=== PATIENT | male | born 2000 | race Two or more races ===

== ENCOUNTER 2022-05-24 08:00 | Outpatient (CLI) | payer OTHER | END 2022-05-24 08:05 | disposition home or self-care (01) | LOC: PPH VACUNA 08:00 | PROVIDERS: ATTEND Emergency Medicine Pediatric Emergency Medicine | DX: Z23 Encounter for immunization (principal) ==

== ENCOUNTER 2022-06-20 20:16 | Emergency (ER) | payer OTHER ==
[~2022-06-20] VITALS: Ht 177.8 cm; Wt 90.7 kg
[2022-06-20] MEDS ORDERED: AMOX-CLAV 875-1 EAC1 PO (22:50)
== END 2022-06-20 22:57 | disposition home or self-care (01) ==
LOC: ER 20:16
DX: J02.9 Acute pharyngitis, unspecified (principal); Z20.822 Contact with and (suspected) exposure to COVID-19

== ENCOUNTER → 2023-10-01 06:58 | Outpatient (CLI) | payer OTHER ==
[~2023-10-01 06:58] MED LIST: AMOX-CLAV 875-1 EAC1 PO
[2023-10-01 07:35] LABS: HEMATOCRIT 46.5 % (39.0-48.0); MEAN CELL VOLUME 86.4 fL (80.0-100.00); MEAN CORPUSCULAR HEMOGLOBIN 29.6 pg (27.00-32.0); MEAN CORPUSCULAR HGB CONC 34.3 g/dl (32.0-36.0); PLATELET COUNT 201 K/uL (150-450); RED BLOOD COUNT 5.39 M/uL (4.00-6.00); RED CELL DISTRIBUTION WIDTH 13.3 % (11.5-14.5)
[2023-10-01 08:05] LABS: ALBUMIN 3.8 gm/dL (3.4-5.0); BILIRUBIN TOTAL 0.3 mg/dL (0.3-1.2); CHOL HDL RATIO 5.7 (0-5.0); CREATININE SERUM 1.03 mg/dL (0.70-1.30); GFR 88.72; GLOBULINA 4.1 G/DL (2.4-3.5); POTASSIUM 3.89 mEq/L (3.5-5.1); T4 TOTAL 10.36 UG/DL (4.5-12.1); TOTAL PROTEIN 7.9 gm/dL (6.4-8.2); TSH 1.04 uIU/mL (0.358-3.74)
== END | disposition home or self-care (01) ==
LOC: LAB 06:58
PROVIDERS: ATTEND General Practice
DX: E78.5 Hyperlipidemia, unspecified (principal)

== ENCOUNTER 2023-11-06 14:30 | Outpatient (CLI) | payer OTHER | END 2023-11-06 14:40 | disposition home or self-care (01) | LOC: PPH VACUNA 14:30 | PROVIDERS: ATTEND Emergency Medicine Pediatric Emergency Medicine | DX: Z23 Encounter for immunization (principal) ==

== ENCOUNTER 2024-07-22 07:45 | Outpatient (CLI) | payer OTHER | END 2024-07-22 07:55 | disposition home or self-care (01) | LOC: PPH VACUNA 07:45 | PROVIDERS: ATTEND Emergency Medicine Pediatric Emergency Medicine | DX: Z23 Encounter for immunization (principal) ==

== ENCOUNTER 2025-01-19 06:24 | Outpatient (CLI) | payer OTHER ==
[2025-01-19 07:11] LABS: BASO % 0.4 % (0.1-1.2); EOS # 0.33 (0.04-0.54); EOS % 3.5 % (0.7-7.0); HEMATOCRIT 46.4 % (40.1-51.0); LYMPH # 3.68 (1.18-3.74); LYMPH % 38.9 % (19.3-53.1); MEAN CORPUSCULAR HEMOGLOBIN 28.6 pg (25.6-32.2); MONO # 0.97 (0.24-0.82); MONO % 10.2 % (4.7-12.5); NEUT # 4.39 (1.56-6.13); NEUT % 46.4 % (34.0-71.1); PLATELET COUNT 224 K/uL (163-369); RED BLOOD COUNT 5.59 M/uL (4.63-6.08); RED CELL DISTRIBUTION WIDTH 12.2 % (11.6-14.4)
[2025-01-19 08:10] LABS: CREATININE SERUM 1.03 mg/dL (0.70-1.30); GFR 87.99; POTASSIUM 4.54 mEq/L (3.5-5.1)
== END 2025-01-19 06:27 | disposition home or self-care (01) ==
LOC: LAB 06:24
PROVIDERS: ATTEND General Practice
DX: A50.9 Congenital syphilis, unspecified (principal); D64.9 Anemia, unspecified; E11.9 Type 2 diabetes mellitus without complications

== ENCOUNTER 2025-01-28 07:37 | Outpatient (CLI) | payer OTHER | END 2025-01-28 14:53 | disposition home or self-care (01) | LOC: LAB 07:37 | PROVIDERS: ATTEND General Practice | DX: B18.2 Chronic viral hepatitis C (principal); B19.20 Unspecified viral hepatitis C without hepatic coma ==

== ENCOUNTER 2025-05-29 02:42 | Emergency (ER) | payer OTHER ==
[~2025-05-29] VITALS: Ht 177.8 cm; Wt 108.9 kg
[2025-05-29] MEDS ORDERED: POTASSIUM CHLORIDE/NACL 0.9% 20 MEQ/1,000 ML PIGGYBAG IV ONE ×2 (02:49→03:00)
[2025-05-29] MEDS ORDERED: LACTOBACILLUS ACIDOPHILUS 1 CAP CAP PO STA (02:50)
[2025-05-29 03:08] LABS: BASO % 0.2 % (0.1-1.2); EOS # 0.08 (0.04-0.54); EOS % 0.7 % (0.7-7.0); LYMPH # 2.08 (1.18-3.74); LYMPH % 17.0 % (19.3-53.1); MEAN PLATELET VOLUME 10.50 fl (9.4-12.4); MONO # 1.10 (0.24-0.82); MONO % 9.0 % (4.7-12.5); NEUT # 8.90 (1.56-6.13); NEUT % 72.8 % (34.0-71.1); RED CELL DISTRIBUTION WIDTH 12.2 % (11.6-14.4)
[2025-05-29 03:51] LABS: ALT/SGPT 24.0 U/L (12-78); AST/SGOT 9.0 U/L (15-37); BILIRUBIN TOTAL 0.84 mg/dL (0.3-1.2); BUN CREA RATIO 12.0 (7.0-25.0); CREATININE SERUM 1.21 mg/dL (0.70-1.30); GFR 72.49; GLOBULINA 3.5 G/DL (2.4-3.5); GLUCOSE FASTING 92.0 mg/dL (65-100); OSMOLALITY SERUM 284.0 MOSM/KG (275-295)
[2025-05-29] MEDS ORDERED: METRONIDAZOLE/SODIUM CHLORIDE 500 MG/100 ML PIGGYBACK IV STA (04:12)
[2025-05-29] MEDS ORDERED: CIPROFLOXACIN IN 5 % DEXTROSE 400 MG/200 ML PIGGYBAG IV STA (04:12)
[2025-05-29] MEDS ORDERED: METRONIDAZOLE/SODIUM CHLORIDE 500 MG/100 ML PIGGYBACK IV ONE (04:40)
[2025-05-29] MEDS ORDERED: CIPROFLOXACIN IN 5 % DEXTROSE 400 MG/200 ML PIGGYBAG IV ONE (04:40)
[2025-05-29] MEDS ORDERED: INTESTINEX680 M1 PO (07:59)
[2025-05-29] MEDS ORDERED: CIPRO500 MG PO (07:59)
[2025-05-29] MEDS ORDERED: ZOFRAN8 MG PO (07:59)
[2025-05-29] MEDS ORDERED: LEVSIN/SL0.125 MG SL (08:02)
[2025-05-29] MEDS ORDERED: ONDANSETRON HCL 2 MG/ML VIAL ONE (08:03)
== END 2025-05-29 08:17 | disposition home or self-care (01) ==
LOC: ER 02:42
PROVIDERS: General Practice
DX: R19.7 Diarrhea, unspecified (principal); E86.0 Dehydration

== ENCOUNTER 2025-07-28 07:07 | Outpatient (CLI) | payer OTHER ==
[~2025-07-28 07:07] MED LIST changes: +CIPRO500 MG PO; +INTESTINEX680 M1 PO; +LEVSIN/SL0.125 MG SL; +ZOFRAN8 MG PO
[2025-07-28 07:37] LABS: URINE APPEARANCE Clear; URINE BILIRRUBIN Negative (NEGATIVE); URINE BLOOD Negative; URINE COLOR Yellow; URINE GLUCOSE Negative (NEGATIVE); URINE KETONE Negative (NEGATIVE); URINE LEUKOCYTE Negative; URINE NITRATE Negative; URINE PROTEIN Negative (NEGATIVE); URINE UROBILINOGEN 0.2 E.U./dl
[2025-07-28 07:47] LABS: URINE BACTERIA 3.5 uL (0.0-1933); URINE CAST 0.00 uL (0.0-1.40); URINE EPITHELIAL CELLS 0.3 uL (0.0-38.8); URINE RBC 1.6 uL (0.0-20.8); URINE WBC 0.7 uL (0.0-23.2)
[2025-07-28 08:04] LABS: BASO % 0.7 % (0.1-1.2); EOS # 0.38 (0.04-0.54); EOS % 5.0 % (0.7-7.0); LYMPH # 2.57 (1.18-3.74); LYMPH % 33.9 % (19.3-53.1); MEAN PLATELET VOLUME 10.70 fl (9.4-12.4); MONO # 0.74 (0.24-0.82); MONO % 9.8 % (4.7-12.5); NEUT # 3.80 (1.56-6.13); NEUT % 50.1 % (34.0-71.1); RED CELL DISTRIBUTION WIDTH 12.8 % (11.6-14.4)
[2025-07-28 08:48] LABS: ALT/SGPT 64.0 U/L (12-78); AST/SGOT 28.0 U/L (15-37); BILIRUBIN TOTAL 0.46 mg/dL (0.3-1.2); BUN CREA RATIO 18.0 (7.0-25.0); CHOL HDL RATIO 7.5 (0-5.0); CREATININE SERUM 1.08 mg/dL (0.70-1.30); GFR 82.65; GLOBULINA 3.4 G/DL (2.4-3.5); GLUCOSE FASTING 98.0 mg/dL (65-100); HDL 32.0 mg/dl (40-60); LDL 166.0 mg/dl (0-130); OSMOLALITY SERUM 282.0 MOSM/KG (275-295); T4 FREE 1.01 NG/ML (0.76-1.46); TSH 0.869 uIU/mL (0.358-3.74); VLDL 42.0 (0-39)
== END 2025-07-28 07:13 | disposition home or self-care (01) ==
LOC: LAB 07:07
DX: R05.9 Cough, unspecified (principal); I11.9 Hypertensive heart disease without heart failure; E03.9 Hypothyroidism, unspecified; E78.1 Pure hyperglyceridemia; N39.0 Urinary tract infection, site not specified; E11.69 Type 2 diabetes mellitus with other specified complication